=== PATIENT | female | born 1975 | race Asian ===

== ENCOUNTER 2016-07-02 18:58 | Outpatient (CLI) | payer BC ==
[~2016-07-02] VITALS: Ht 154.9 cm; Wt 59.1 kg
[2016-07-02 20:05] VITALS: Ht 154.9 cm; Wt 59.1 kg
[2016-07-02] MEDS ORDERED: PRENTAB26 PO (20:07)
== END 2016-07-02 20:15 | disposition home or self-care (01) ==
LOC: C.LD 18:58 → C.OPB 18:58
PROVIDERS: ATTEND Obstetrics & Gynecology
DX: O36.5930 Maternal care for other known or suspected poor fetal growth, third trimester, not applicable or unspecified (principal); O09.523 Supervision of elderly multigravida, third trimester; Z3A.39 39 weeks gestation of pregnancy

== ENCOUNTER 2016-07-03 07:34 | Inpatient (IN) | payer BC ==
[~2016-07-03] VITALS: Ht 154.9 cm; Wt 61.4 kg
[~2016-07-03 07:34] MED LIST: PRENTAB26 PO
[2016-07-03] MEDS ORDERED: LACTATED RINGER'S 1000ML 1,000 ML IV PRN (09:12)
[2016-07-03] MEDS ORDERED: LACTATED RINGER'S 1000ML 500 ML IV PRN ×2 (09:12→13:59)
[2016-07-03] MEDS ORDERED: OXYTOCIN 30 UNITS/500ML NSS IV PRN ×2 (09:15→21:15)
[2016-07-03] MEDS: LACTATED RINGER'S 1000ML 1,000 ML IV SCH ×3 (09:44→18:35)
[2016-07-03 09:45] LABS: HEMATOCRIT 30.2 % (37-47); MEAN CELL VOLUME 83.7 fL (80-100); MEAN CORPUSCULAR HEMOGLOBIN 27.4 pg (25-34); MEAN CORPUSCULAR HGB CONC 32.8 g/dl (32-36); MEAN PLATELET VOLUME 10.3 fL (7.4-10.4); PLATELET COUNT 257 K/uL (130-400); RED BLOOD COUNT 3.61 M/uL (4.2-5.4); WHITE BLOOD COUNT 10.48 K/uL (4.8-10.8)
[2016-07-03 11:39] VITALS: Ht 154.9 cm; Wt 61.4 kg
[2016-07-03] MEDS ORDERED: FENTANYL 2MCG/ML ROPIV 1.25MG/ML 100ML BAG EPI ONE (13:20)
[2016-07-03] MEDS ORDERED: BUPIVACAINE 0.25% 30 ML VIAL ONE (13:20)
[2016-07-03] MEDS ORDERED: FENTANYL CITRATE INJ 50 MCG/1 ML 2 ML VIAL ONE (13:20)
[2016-07-03] MEDS ORDERED: EpHEDrine SULFATE INJ 50 MG/ML AMP ONE (13:20)
[2016-07-03] MEDS ORDERED: FENTANYL 2MCG/ML ROPIV 1.25MG/ML 100ML BAG EPI PRN (14:00)
[2016-07-03] MEDS ORDERED: EpHEDrine SULFATE INJ 50 MG/ML AMP IV PRN (14:00)
[2016-07-03] MEDS ORDERED: NALOXONE HCL INJ 0.4 MG/1 ML VIAL/CARP IV PRN (14:00)
[2016-07-03] MEDS ORDERED: OXYTOCIN INJ 20 UNITS in LACTATED RINGER'S 1000ML 1,000 ML IV SCH (21:08)
[2016-07-03] MEDS ORDERED: HYDROCORTISONE ACETATE 25 MG SUPP PR PRN (21:15)
[2016-07-03] MEDS ORDERED: BENZOCAINE 20% AER SPR 82.5 GM CAN EXT PRN (21:15)
[2016-07-03] MEDS ORDERED: DIPHTHERIA/TETANUS/PERTUSSIS 0.5 ML SYR/VIAL IM. ONE (21:15)
[2016-07-03] MEDS ORDERED: LANOLIN OINT EXT PRN ×2 (21:15)
[2016-07-03] MEDS ORDERED: ACETAMINOPHEN 325 MG TAB PO PRN (21:15)
[2016-07-03] MEDS ORDERED: ACETAMINOPHEN/CODEINE 300/30MG TAB PO PRN ×2 (21:15)
[2016-07-03] MEDS ORDERED: SUPERCREAM 0.870 % 15GM JAR EXT PRN (21:15)
--- NOTE | 2016-07-03 21:53 | Anesthesia Procedure Note ---
Anesthesia Epidural Removal Nt Date & Time Jul 03, 2016 at 21:53 Vital Signs Pain Intensity: 0.0 Notes Mental Status: alert / awake / arousable, participated in evaluation Nausea / Vomiting: adequately controlled Pain: adequately controlled Airway Patency, RR, SpO2: stable & adequate BP & HR: stable & adequate Hydration State: stable & adequate Neuraxial Anesthesia: was administered Anesthetic Complications: no major complications apparent, pt satisfied with anesthetic care Epidural: removed without complications, with tip intact
--- NOTE | 2016-07-03 23:57 | DELIVERY SUMMARY ---
DATE OF OPERATION: 07/03/2016 The patient dilated to complete and pushed to deliver a viable male , Apgars 9 and 9, via over a second-degree perineal laceration. Nose and mouth were bulb suctioned at the perineum. Loose nuchal cord x1 reduced easily. Shoulders and body delivered with ease. vigorous and crying at . Placenta delivered spontaneously and an intact 3-vessel cord. Cervix and sulci intact. Laceration repaired in routine fashion using 3-0 Vicryl. EBL 300 mL. Bladder drained under sterile conditions for 25 mL. Mother and baby stable in recovery. I attest to the content of the Intraoperative Record and any orders documented therein. Any exceptio ns are noted below.
[2016-07-04 06:10] VITALS: BP 117/72; PULSE 64; TEMP 36.7
--- NOTE | 2016-07-04 06:59 | Progress Note ---
Subjective Jul 04, 2016. Subjective conversation w/ patient, physical exam Ambulation: ambulating normally Voiding: no voiding problems Diet Tolerance: Regular Diet Lochia: Small Feeding Type: Breast Feeding Pain: uterine cramps and bottom sore Objective Vital Signs Date Time Temp Pulse Resp B/P Pulse Ox O2 Delivery O2 Flow Rate FiO2 07/04/16 06:10 36.7 64 20 117/72 Room Air 99 Physical Exam General Appearance: WELL-APPEARING, WD/WN, NO APPARENT DISTRESS Respiratory/Chest: lungs clear Cardiovascular: regular rate, rhythm Abdomen: non tender, soft Fundus: Firm, Relation to Umbilicus (at umbilicus) Extremities: non-tender Laboratory Results Last 24 Hours Test 07/03/16 09:28 White Blood Count 10.48 K/uL Red Blood Count 3.61 M/uL Hemoglobin 9.9 g/dL Hematocrit 30.2 % Mean Corpuscular Volume 83.7 fL Mean Corpuscular Hemoglobin 27.4 pg Mean Corpuscular Hemoglobin Concent 32.8 g/dl RDW Standard Deviation 40.2 fL RDW Coefficient of Variation 13.2 % Platelet Count 257 K/uL Mean Platelet Volume 10.3 fL Assessment and Plan Post- Day#: 1 Continue Routine Care: stable, routine care.
[2016-07-04 07:50] VITALS: BP 118/78; PULSE 62; TEMP 36.5
[2016-07-04] MEDS: DOCUSATE SODIUM 100 MG CAP PO SCH ×2 (09:24→23:15)
[2016-07-04] MEDS: IBUPROFEN 600 MG TAB PO PRN ×2 (09:25→23:15)
[2016-07-04 11:30] VITALS: BP 110/71; PULSE 67; TEMP 36.2
[2016-07-04 16:30] VITALS: BP 101/67; PULSE 65; TEMP 36.5
[2016-07-04 19:30] VITALS: BP 107/68; PULSE 70; TEMP 36.8
[2016-07-04 23:15] VITALS: BP 104/68; PULSE 71; TEMP 36.4
[2016-07-05] MEDS: IBUPROFEN 600 MG TAB PO PRN (06:21)
--- NOTE | 2016-07-05 06:53 | Progress Note ---
Subjective Jul 05, 2016. Subjective conversation w/ patient, physical exam, lab review Ambulation: ambulating normally Voiding: no voiding problems Passing Gas: Yes Diet Tolerance: Regular Diet Lochia: Small Feeding Type: Breast Feeding Pain: having issues with hemorrhoids Comment: She is feeling well but concerned about breast feeding. Objective Vital Signs Date Time Temp Pulse Resp B/P Pulse Ox O2 Delivery O2 Flow Rate FiO2 07/04/16 23:15 Room Air 99 07/04/16 23:15 36.4 71 20 104/68 Room Air 07/04/16 19:30 36.8 70 20 107/68 Room Air 07/04/16 16:30 36.5 65 16 101/67 Room Air 07/04/16 16:30 Room Air 07/04/16 11:30 36.2 67 16 110/71 Room Air 07/04/16 07:50 Room Air 07/04/16 07:50 36.5 62 18 118/78 Room Air Physical Exam General Appearance: WELL-APPEARING, WD/WN, NO APPARENT DISTRESS Respiratory/Chest: lungs clear, normal breath sounds Cardiovascular: regular rate, rhythm Abdomen: non tender, soft Fundus: Firm, Non-Tender, Relation to Umbilicus (1 below u) Extremities: non-tender, normal inspection, no pedal edema Assessment and Plan Post- Day#: 2 Continue Routine Care: Doing well. Plan d/c. Instructions given.
--- NOTE | 2016-07-05 06:54 | Discharge Instructions ---
Discharge Instructions Admission Reason for Admission: Induction Discharge Discharge Diagnosis / Problem: s/p vaginal delivery Discharge Goals Goal(s): Routine recovery after delivery Medications Continue Dispensed Medications: supercream, dermaplast, tucks, lansinoh Activity Recommendations Activity Limitations: per Instructions/Follow-up section . Instructions / Follow-Up Instructions / Follow-Up ACTIVITY RECOMMENDATIONS: * Gradual return to full activity over the next 2-3 weeks. * No lifting - nothing heavier than baby over the next 2-3 weeks. * Do not engage in vigorous exercise, sexual activity or sports until cleared by your physician. * Do not drive or operate any motorized equipment until cleared by your physician. * You may shower/bathe daily. MEDICATIONS: For discomfort or pain, you may use Acetaminophen (Tylenol), Ibuprofen (Advil), or Naproxen (Aleve) following the package directions. For constipation you may use Colace following the package directions. BREAST CARE: If you are not breast feeding: * Wear a supportive bra 24 hours a day for one to two weeks. * Avoid stimulating your breasts and nipples as much as possible during the first few weeks after delivery. * When taking a shower, have the warm water hit your back, not breasts. * When your breasts feel full, apply ice packs. Usually three to four times a day helps ease the discomfort. * Take a mild pain medication (Tylenol / Motrin) when you are uncomfortable. If breast feeding: * Use breast milk to lubricate nipples. Lansinoh cream may be used for sore nipples. You do not need to remove cream prior to breast feeding. If using a different brand of cream, check the label for directions regarding removal of cream prior to nursing. * Wear a supportive bra. * If having problems with breasts or breast feeding, call a technical assistance consultant or your health care provider. EPISIOTOMY CARE: After delivery, if you have an episiotomy (stitches), the following steps will ease discomfort and aid healing. * For the first 24 hours after delivery, place ice packs next to your episiotomy to help reduce swelling. * After the first 24 hour-period, sitz baths, either portable or in the tub, are suggested. A shower with a shower arm sprayed over the episiotomy may be comforting. * Arabella care should be done after each voiding and bowel movement. Squirt warm water from a plastic bottle over the perineum (region of the body between the anus and urinary opening) and pat dry. * Use Dermoplast to ease discomfort. Shake container. Golf directly over the episiotomy. Place a Tucks on a clean sanitary pad next to your episiotomy. SPECIAL CARE INSTRUCTIONS: When you are discharged from the hospital, it is important for you to follow the instructions listed below: * During the first week at home, you should be able to care for yourself and your baby. In addition, the usual light household activities are encouraged. * Limit your activities to the way you feel. Do not try to clean the house or move furniture. Be sensible. * If you actively engage in sports and have done so up until the time of your delivery, you may resume these activities as soon as you feel able. This may take up to one month or even longer. Use good judgment. * Continue to take your vitamins for at least six weeks after the of your baby. * Your diet need not be limited unless you were on a special diet before your delivery. Breast-feeding mothers need around 2500 calories per day and at least 64-80 ounces of fluid per day (8 to 10 glasses). * You should eat foods from the four major food groups. Crash diets or fad diets are to be avoided. Eating lean meats, fresh fruits and vegetables, low-fat dairy products, high fiber foods and a regular exercise program, will help you get back to your pre- weight without putting your health at risk. * Constipation is sometimes a problem after delivery. Take a mild laxative as needed. If breast feeding, Milk of Magnesia is acceptable to use. You may use a suppository or Fleets enema if no episiotomy. * A daily shower or tub bath is suggested. Be sure to thoroughly and gently dry the perineum. * A bloody vaginal discharge will usually continue until around four weeks post . A small amount of bleeding may continue for as long as six weeks. Vaginal discharge changes from the bright red bleeding after delivery to pink then brownish and finally yellowish-pink before becoming white and disappearing. * Bleeding may increase with activity. Your first period may come in 4-8 weeks. If you are breast feeding, your period may be delayed even longer. * [place] (sex) can begin whenever both you and your partner feel comfortable and do not have any form of genital infection. It is recommended that you wait at least six weeks for internal and external healing to occur. If you have questions, please talk to your health care practitioner. A condom should be used to prevent infection and . * Foreplay, gentle intercourse and lubrication is very important the first several times to prevent pain. A water-based lubricant such as K-Y jelly or Astroglide may be used. * If you have RH negative blood and your baby is RH positive, you will receive RHOGAM by injection prior to discharge. The nurse will give you a card to keep with you that has the date and place that you received RHOGAM after delivery. * During your care, you had a Rubella screen done to check for the presence of rubella antibodies in your blood. If your test was negative, you will receive a Rubella vaccine prior to discharge. This vaccine may cause a fever, soreness at the injection site and flu-like symptoms. If these symptoms persist, notify your health care practitioner. is not advised for one month after a Rubella vaccine. * Verbalizes understanding of car seat law as reviewed with patient nursing. * Car Seat hand-out given and reviewed with patient by nursing. * Shaken baby information reviewed with patient by nursing. Call you doctor if: * Heavy bleeding (saturating several pads an hour) or passing clots the size of your fist. * A fever >101 degrees F (38.3 degrees C) on two occasions four hours apart and /or chills. * Unusual pain in the pelvic or vaginal areas. * "Baby Blues" lasting longer than two weeks. If you have any questions or concerns, call your health care practitioner at . FOLLOW UP VISIT: * Please call the office at to schedule a 6 week examination. It is important you keep this appointment. It is important for you to make arrangements for either yearly or twice yearly check-ups thereafter. Current Hospital Diet Patient's current hospital diet: Regular OB Diet Discharge Diet Recommended Diet: Regular Diet Pending Studies Studies pending at discharge: no Medical Emergencies . Who to Call and When: Medical Emergencies: If at any time you feel your situation is an emergency, please call 911 immediately. . Non-Emergent Contact Non-Emergency issues call your: Data Compiler . . "Provider Documentation" section prepared by Katy Edge. VTE Core Measure Inpt VTE Proph given/why not?: Treatment not indicated
--- NOTE | 2016-07-05 07:06 | Progress Note ---
Subjective Jul 05, 2016. Subjective conversation w/ patient, physical exam Ambulation: limited ambulation Voiding: no voiding problems Passing Gas: Yes Diet Tolerance: Regular Diet Feeding Type: Breast Feeding Pain: Minor pain, well controlled with motrin Review of Systems Constitutional: No chills, No fever Respiratory: No cough, No shortness of breath Cardiac: No chest pain Breast: No breast pain Abdomen: No nausea, No pain, No vomiting Female : No dysuria Objective Vital Signs Date Time Temp Pulse Resp B/P Pulse Ox O2 Delivery O2 Flow Rate FiO2 07/04/16 23:15 Room Air 99 07/04/16 23:15 36.4 71 20 104/68 Room Air 07/04/16 19:30 36.8 70 20 107/68 Room Air 07/04/16 16:30 36.5 65 16 101/67 Room Air 07/04/16 16:30 Room Air 07/04/16 11:30 36.2 67 16 110/71 Room Air 07/04/16 07:50 Room Air 07/04/16 07:50 36.5 62 18 118/78 Room Air Physical Exam General Appearance: WELL-APPEARING, WD/WN, NO APPARENT DISTRESS Respiratory/Chest: lungs clear, normal breath sounds Cardiovascular: regular rate, rhythm, no gallop, no murmur Abdomen: non tender, soft Fundus: Firm, Relation to Umbilicus (At umbilicus) Extremities: no calf tenderness Medications Current Inpatient Medications Medications (Trade) Dose Ordered Sig/Cathi Route Start Time Stop Time Status Last Admin Dose Admin Oxytocin (Pitocin IV) 30 units UD PRN IV 07/03/16 21:15 08/02/16 21:14 Benzocaine (Dermoplast Aero Spr) 1 appln PRN PRN EXT 07/03/16 21:15 08/02/16 21:14 07/04/16 09:23 1 APPLN Cocaine HCl (Supercream 0.870% Cr) BID PRN EXT 07/03/16 21:15 07/17/16 21:14 07/04/16 06:22 15 GM Hydrocortisone Acetate (Anusol Hc Supp) 25 mg BID PRN MS 07/03/16 21:15 08/02/16 21:14 Lanolin (Lanolin Oint) PRN PRN EXT 07/03/16 21:15 08/02/16 21:14 Ibuprofen (Motrin Tab) 600 mg Q4H PRN PO 07/03/16 21:15 08/02/16 21:14 07/05/16 06:21 600 MG Acetaminophen (Tylenol Tab) 650 mg Q6H PRN PO 07/03/16 21:15 08/02/16 21:14 Acetaminophen/ Codeine Phosphate (Tylenol w/ Codeine #3 Tab) 1 tab Q4H PRN PO 07/03/16 21:15 08/02/16 21:14 Acetaminophen/ Codeine Phosphate (Tylenol w/ Codeine #3 Tab) 2 tab Q4H PRN PO 07/03/16 21:15 08/02/16 21:14 Docusate Sodium (coLACE CAP) 100 mg BID PO 07/04/16 08:00 08/03/16 07:59 07/04/16 09:24 100 MG Assessment and Plan Post- Day#: 2 Continue Routine Care: - Vital Signs reviewed and WNL (temp max 36.8) - Blood Type: O+, GBS- , Rubella Immune - Patient doing well clinically - Encourage Ambulation today - Pain well controlled with Motrin - Tolerating PO Diet Well
[2016-07-05 07:30] VITALS: BP 113/73; PULSE 62; TEMP 36.3
[2016-07-05] MEDS: DOCUSATE SODIUM 100 MG CAP PO SCH (08:44)
[2016-07-05 13:26] VITALS: BP_DIAS 73; PULSE 62; TEMP 36.3
== END 2016-07-05 13:43 | disposition home or self-care (01) | DRG 775 ==
LOC: C.LD 07:34 → C.MS4N 07-04 06:20
PROVIDERS: ADMIT Obstetrics & Gynecology; ATTEND Obstetrics & Gynecology
PROC: 0KQM0ZZ Repair Perineum Muscle, Open Approach (ICD-10-PCS; principal; 2016-07-03)
PROC: 0U7C7ZZ Dilation of Cervix, Via Natural or Artificial Opening (ICD-10-PCS; principal; 2016-07-03)
PROC: 10E0XZZ Delivery of Products of Conception, External Approach (ICD-10-PCS; principal; 2016-07-03)
PROC: 10907ZC Drainage of Amniotic Fluid, Therapeutic from Products of Conception, Via Natural or Artificial Opening (ICD-10-PCS; principal; 2016-07-03)
PROC: 3E033VJ Introduction of Other Hormone into Peripheral Vein, Percutaneous Approach (ICD-10-PCS; principal; 2016-07-03)
DX: O70.1 Second degree perineal laceration during delivery (principal); Z37.0 Single live birth; O99.52 Diseases of the respiratory system complicating childbirth; O69.81X0 Labor and delivery complicated by cord around neck, without compression, not applicable or unspecified; O76 Abnormality in fetal heart rate and rhythm complicating labor and delivery; J45.909 Unspecified asthma, uncomplicated; Z3A.39 39 weeks gestation of pregnancy